=== PATIENT | female | born 1960 | race Caucasian/White ===

== ENCOUNTER 2017-11-04 10:27 | Observation (INO) ==
--- NOTE | 2017-11-04 12:28 | ERNOTE ---
Medical Problem HPI - Narrative Date of Service: 11/04/17 - General Chief Complaint: General Assessment Time Seen by Provider: 11/04/17 10:44 Source: patient, family Exam Limitations: no limitations - Immun/Allergies/Home Medications Immunizations: IMMUNIZATION HX Immunizations Up to Date No History of Influenza Vaccine No Hx Pneumococcal Vaccination No Allergies/Adverse Reactions: Allergies hydrocodone bitartrate [From Vicodin] Allergy (Intermediate, Verified 11/04/17 12:56) seizure Sulfa (Sulfonamide Antibiotics) Allergy (Intermediate, Verified 11/04/17 12:56) Rash, stomach upset Home Medications: HOME MEDICATIONS Amlodipine Besylate [Norvasc] 2.5 mg PO DAILY 12/02/13 [Last Taken 12/02/13 2.5 MG] Acetaminophen [Tylenol] 650 mg PO Q6H PRN 02/15/15 [Last Taken Unknown] Calcium Carbonate/Vitamin D3 [Calcium 600 + D Tablet] 1 each PO DAILY 02/15/15 [ Last Taken Unknown] Cyanocobalamin [Vitamin B-12] 1,000 mcg PO DAILY 02/15/15 [Last Taken Unknown] oxyCODONE HCL [Oxycodone HCl] 5 mg PO Q4H PRN #20 tablet 11/03/17 [Last Taken Unknown] - History of Present History Narrative: Pt presents with complaints of left upper extremity weakness and tremor as well as inability to care for herself at home. She presents with her son and daughter who state they are worried for her safety, pt fell at home since last being seen. She was seen on the (original injury), (similar symptoms as today-told to stop taking tramadol), and now again today. Last tramadol was taken yesterday at 9am. She broke her ankle 11/02 is schedule to follow up with ortho next week for eventual ORIF. Pt states she has had these symptoms before following taking vicodin. She was seen by neurology and an EEG indicated sz activity, she was on keppra for but due to lethargy was able to wean herself off of. Tramadol was given in the ER for pain control, however this has been shown to reduce sz threshold. Date (Duration): 11/03/17 Timing: constant Severity: severe Review of Systems - Review of Systems Constitutional: Present: no symptoms reported EYE: Present: no symptoms reported ENT: Present: no symptoms reported Respiratory: Present: no symptoms reported Cardiology: Present: no symptoms reported Gastrointestinal/Abdominal: Present: no symptoms reported Genitourinary: Present: no symptoms reported Musculoskeletal: Present: other - left ankle fx-in cast Skin: Present: no symptoms reported Neurological: Present: weakness, tremors Endocrine: Present: no symptoms reported Hematologic/Lymphatic: Present: no symptoms reported Psych: Present: no symptoms reported - Patient's Past Medical History Patient History - Medical: Other Patient History - Cardiac/Respiratory: No pertinent hx Patient History - Cancer: No Hx of Cancer Patient History - Surgical Procedures: T & A Patient History - Other: None LMP (females 10-50): Menopausal - Family History Mother Family History - Medical: Family History - Cardiac/Respiratory: Pulmonary Embolism Father Family History - Medical: , Liver Disease - Social History Living Situations: home Abuse History: No History of abuse, Physical abuse, Emotional abuse Psych History: No pertinent hx - Immunizations Immunizations Up to Date: No Hx Pneumococcal Vaccination: No History of Influenza Vaccine: No Physical Exam - Physical Exam General Appearance: Present: wd/wn, alert, no apparent distress Head Exam: Present: normal inspection, no evidence of injury Eye Exam: Normal inspection: bilateral Ears, Nose, Throat: Present: normal ENT inspection Neck: Present: normal inspection, nontender Respiratory: Present: no respiratory distress, normal breath sounds, no accessory muscle use, chest nontender, lungs clear Cardiovascular/Chest: Present: regular rate, rhythm, no murmur, normal peripheral pulses Gastrointestinal/Abdominal: Present: normal bowel sounds, nontender, nondistended, soft Back Exam: Present: normal inspection, normal range of motion Extremity Exam: Present: non-tender, no edema, decreased range of motion - LLE Neurological Exam: Present: alert, oriented, normal mood/affect, no motor/ sensory deficits, 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 Absent : facial droop, motor weakness, disoriented to person, disoriented to time Skin Exam: Present: normal color, warm/dry ED Progress - Date and Time Seen: Date and Time: Dr. Guidry spoke to regarding pt who is agreeable to accept her as observation. I spoke at length with pt and her family regarding the need for additional help following this hospital admission as well as after her surgery and even after her tremors are under control she will still need additional assistance and checking in on. 11/04/17 16:45 I spoke with Jules Ma regarding pt admission. Ortho consult placed and pt will be made NPO at midnight just in case surgery is an option at that time. - Vital Signs Patient's Vital Signs:: I have reviewed the patient's vital signs. Vital Signs: Vital Signs 11/04/17 10:33 Temperature 37.1 C Pulse Rate 110 H Respiratory 17 Rate Blood Pressure 176/100 O2 Sat by Pulse 96 Oximetry - Progress/Reassessment Chief Complaint: General Assessment Progress:: Unchanged Plan - Plan Plan: Pt and family agree that pt is not safe to go home given her profound tremor and weakness in addition to her original LLE injury which she is not to bear weight on. She has crutches and a walker at home but is unable to use either due to her tremor. She hasn't taken her tramadol since yesterday, the half life of this is quite short, however due to pt underlying sz disorder I am unsure when it will completely subside. Pt is requesting to be placed on low dose keppra to assist with control of her symptoms. I am agreeable to do so in a supervised hospital setting where additional sz activity can be monitored. Departure Clinical Impression: Tremor, Weakness - Departure Disposition: Still a patient Condition: Good
[2017-11-04] MEDS ORDERED: levETIRAcetam 500 MG TABLET PO SCH (12:30)
[2017-11-04] MEDS: NORMAL SALINE 1,000 ML IV PRN ×2 (12:36→20:35)
[2017-11-04] MEDS ORDERED: ACETAMINOPHEN 325 MG TABLET PO PRN (15:16)
[2017-11-04] MEDS: amLODIPine BESYLATE 5 MG TABLET PO SCH (16:18)
[2017-11-04] MEDS: levETIRAcetam 500 MG TABLET PO SCH (22:57)
[2017-11-04] MEDS: ACETAMINOPHEN WITH CODEINE 1 EACH TABLET PO PRN (22:57)
[2017-11-04] MEDS: DOCUSATE SODIUM 100 MG CAPSULE PO SCH (22:57)
--- NOTE | 2017-11-04 23:27 | HP ---
Chief Complaint - Chief Complaint Date of Service: 11/04/17 Time of Service: 15:00 Chief Complaint: Ankle pain, tremors History of Present Illness: Bianca is a 57 yo female with recent fall and left ankle fracture. This has been previously casted and she has an appointment with ortho on . Recent xrays show left distal fibula fracture, medial malleolus fracture, and possible posterior malleolus fracture. She is unable to take hydrocodone. She had been given oxycodone but this made her feel funny. She was given tramadol, but has a reported history of seizure. She was not recently on anti- seizure medications but states she took keppra in the past. After starting tramadol she reports her left arm started having tremors and she stopped the tramadol. She reports she was at home and unable to get around and care for herself and family was unable to assist her so she returned to the emergency room. - Patient's Past Medical History Patient History - Medical: Seizures Patient History - Cardiac/Respiratory: Hypertension Patient History - Cancer: No Hx of Cancer Patient History - Surgical Procedures: T & A Patient History - Other: None LMP (females 10-50): Menopausal - Family History Mother Family History - Medical: Family History - Cardiac/Respiratory: Pulmonary Embolism Father Family History - Medical: , Liver Disease - Social History Living Situations: home Abuse History: No History of abuse, Physical abuse, Emotional abuse Psych History: No pertinent hx Smoking Status: Former smoker Have you smoked in the past 12 months: No - Immunizations Immunizations Up to Date: No Hx Pneumococcal Vaccination: No History of Influenza Vaccine: No Review Of Systems (GEN) - Review of Systems Generalized/Overall Review: Present: Weakness. Absent: Chills, Fever EENTM: Present: No Symptoms Reported Respiratory: Present: No Symptoms Reported Cardiac: Present: No Symptoms Reported Abdominal: Present: No Symptoms Reported Genitourinary: Present: No Symptoms Reported Musculoskeletal: Present: Joint Pain Neurological: Present: Tremors Skin: Present: No Symptoms Reported Endocrine: Present: No Symptoms Reported Immunizations: IMMUNIZATION HX Immunizations Up to Date No History of Influenza Vaccine No Hx Pneumococcal Vaccination No Allergies/Adverse Reactions: Allergies Allergy/AdvReac Type Severity Reaction Status Date / Time hydrocodone bitartrate Allergy Intermediate seizure Verified 11/04/17 12:56 [From Vicodin] Sulfa (Sulfonamide Allergy Intermediate Rash, Verified 11/04/17 12:56 Antibiotics) stomach upset Home Medications: HOME MEDICATIONS Amlodipine Besylate [Norvasc] 2.5 mg PO DAILY 12/02/13 [Last Taken 12/02/13 2.5 MG] Acetaminophen [Tylenol] 650 mg PO Q6H PRN 02/15/15 [Last Taken Unknown] Calcium Carbonate/Vitamin D3 [Calcium 600 + D Tablet] 1 each PO DAILY 02/15/15 [ Last Taken Unknown] Cyanocobalamin [Vitamin B-12] 1,000 mcg PO DAILY 02/15/15 [Last Taken Unknown] oxyCODONE HCL [Oxycodone HCl] 5 mg PO Q4H PRN #20 tablet 11/03/17 [Last Taken Unknown] Exam - Exam Vital Signs: Vital Signs - Last Taken Temp 36.7 C 11/04/17 22:55 Pulse 88 11/04/17 22:55 Resp 20 11/04/17 22:55 BP 137/86 11/04/17 22:55 Pulse Ox 97 11/04/17 22:55 Constitutional: Present: Alert, Oriented x3, Cooperative ENT Exam: Present: hearing grossly normal Eye Exam: bilateral eye: normal inspection Respiratory: Present: lungs clear, normal breath sounds Cardiovascular/Chest: Present: regular rate, rhythm, no murmur Abdomen: Present: Normal bowel sounds, soft, nontender, nondistended Extremity: Present: other - Left leg with cast Skin Exam: Present: normal color, warm/dry, no cyanosis Lymphatic: Present: no adenopathy Neurologic: Present: no motor/sensory deficits, alert, normal mood/affect, oriented x 3, other - No tremor seen at this time Appearance: Present: appropriate appearance, appropriate insight Assessment/Plan - Narrative Narrative: Bianca is a 57 yo female with: 1) Left ankle fracture - She reports being unable to perform ADLs at home due to this and family is unable to assist her. She reports unable to take hydrocodone, oxycodone, or tramadol. Tylenol or NSAIDs have been uneffective. I will try tylenol #3 for pain control. If this helps she may be able to discharge to home, otherwise if she is unable to manage ADLs at home may look into fpc. Will consult ortho to recommend management for ankle fracture. 2) Seizure - Patient reports tremors after taking tramadol. She has previously been on keppra for a seizure disorder but has not been taking this. Will restart keppra and stop tramadol. Will monitor. 3) Social - Expect 1 midnight for pain management and looking into disposition. Will plan to discharge to home or intermediate tomorrow. - Assessment/Plan (1) Closed left ankle fracture Problem: Acute (2) Weakness Problem: Acute (3) Seizure disorder Problem: Acute
[2017-11-05 05:43] LABS: Hematocrit 42.9 % (37.0-47.0); Hemoglobin 14.2 gm/dL (12.5-16.0); Mean Cell Volume 94.1 fl (78-100); Mean Corpuscular Hemoglobin 31.1 pg (27-31); Mean Corpuscular Hgb Conc 33.1 g/dl (32-36); Mean Platelet Volume 9.4 fl (6.0-9.5); Neutrophil # 4.5 K/mm3 (1.3-6.0); Platelet Count 256 K/mm3 (150-450); Red Blood Count 4.56 M/mm3 (4.2-5.4); Red Cell Distribution Width 12.4 % (11.5-14.0); White Blood Count 9.4 K/mm3 (4.0-10.5)
[2017-11-05 06:03] LABS: Anion Gap 11.1 mmol/L (6.8-13.8); BUN/Creatinine Ratio 20.3 (9.0-21.6); Calcium * 8.9 mg/dL (7.9-10.9); Carbon Dioxide 28.4 mmol/L (24-32.6); Potassium 3.5 mmol/L (3.4-4.6)
[2017-11-05] MEDS: NORMAL SALINE 1,000 ML IV PRN (06:55)
[2017-11-05] MEDS: ACETAMINOPHEN WITH CODEINE 1 EACH TABLET PO PRN (06:57)
[2017-11-05] MEDS: CALCIUM CARBONATE/VITAMIN D3 1 TAB TABLET PO SCH (08:44)
[2017-11-05] MEDS: CYANOCOBALAMIN 1,000 MCG TABLET PO SCH (08:44)
[2017-11-05] MEDS: DOCUSATE SODIUM 100 MG CAPSULE PO SCH (08:44)
[2017-11-05] MEDS: amLODIPine BESYLATE 5 MG TABLET PO SCH (08:57)
[2017-11-05] MEDS: levETIRAcetam 500 MG TABLET PO SCH ×2 (08:57→20:26)
[2017-11-05] MEDS ORDERED: ceFAZolin SODIUM/DEXTROSE,ISO 2 GM/50 ML BAG IV PRN (10:28)
--- NOTE | 2017-11-05 10:35 | CONS ---
HPI - General Date of Service: 11/05/17 Narrative: Patient was seen in ER for displaced left bimalleolar ankle fracture SundayNovember 01 from a fall when she was mopping a floor. See ER consultation note. Closed reduction performed at that time and discharged home. She has had difficulty managing herself at home and tremor related to medications. She is currently admitted for observation. - History of Present Illness Allergies/Adverse Reactions: Allergies hydrocodone bitartrate [From Vicodin] Allergy (Intermediate, Verified 11/04/17 12:56) seizure Sulfa (Sulfonamide Antibiotics) Allergy (Intermediate, Verified 11/04/17 12:56) Rash, stomach upset Home Medications: Home Medications Medication Instructions Recorded Last Taken Amlodipine Besylate [Norvasc] 2.5 mg PO DAILY 12/02/13 12/02/13 2.5 MG Acetaminophen [Tylenol] 650 mg PO Q6H PRN 02/15/15 Unknown Calcium Carbonate/Vitamin D3 1 each PO DAILY 02/15/15 Unknown [Calcium 600 + D Tablet] Cyanocobalamin [Vitamin B-12] 1,000 mcg PO DAILY 02/15/15 Unknown - Patient's Past Medical History Patient History - Medical: Seizures Patient History - Cardiac/Respiratory: Hypertension Patient History - Cancer: No Hx of Cancer Patient History - Surgical Procedures: T & A Patient History - Other: None LMP (females 10-50): Menopausal - Family History Mother Family History - Medical: Family History - Cardiac/Respiratory: Pulmonary Embolism Father Family History - Medical: , Liver Disease - Social History Living Situations: home Abuse History: No History of abuse, Physical abuse, Emotional abuse Psych History: No pertinent hx Smoking Status: Former smoker Have you smoked in the past 12 months: No - Immunizations Immunizations Up to Date: No Hx Pneumococcal Vaccination: No History of Influenza Vaccine: No Procedures COLONOSCOPY (02/17/15) Medications - Medications Current Medications: Current Medications Acetaminophen (Tylenol) 650 mg PO Q6H PRN PRN Reason: Pain Stop: 12/04/17 15:17 Last Admin: 11/04/17 16:17 Dose: 650 mg Acetaminophen/Codeine Phosphate (Tylenol-Codeine 300 Mg/30 Mg) 1 each PO Q4H PRN PRN Reason: Mild pain (pain scale 1-3) Stop: 12/04/17 15:47 Last Admin: 11/05/17 06:57 Dose: 1 each Amlodipine Besylate (Norvasc) 2.5 mg PO DAILY FARIDA Stop: 12/04/17 15:31 Last Admin: 11/05/17 08:57 Dose: Not Given Calcium/Vitamin D (Calcarb 600 With Vitamin D) 1 tab PO DAILY FARIDA Stop: 12/05/17 09:01 Last Admin: 11/05/17 08:44 Dose: Not Given Cyanocobalamin (Vitamin B-12) 1,000 mcg PO DAILY FARIDA Stop: 12/05/17 09:01 Last Admin: 11/05/17 08:44 Dose: Not Given Docusate Sodium (Colace) 100 mg PO DAILY FARIDA Stop: 12/04/17 22:46 Last Admin: 11/05/17 08:44 Dose: Not Given Sodium Chloride (Sodium Chloride 0.9%) 1,000 mls @ 100 mls/hr IV .Q10H PRN PRN Reason: HYDRATION Stop: 12/04/17 12:14 Last Admin: 11/05/17 06:55 Dose: 100 mls/hr Levetiracetam (Keppra) 250 mg PO BID FARIDA Stop: 12/04/17 21:01 Last Admin: 11/05/17 08:57 Dose: Not Given Physical Examination - Exam Narrative: LLE in sugar tong and foot plate splint. Mild to moderate swelling. Sensation intact to light touch. Dorsalis pedis pulse intact. Xrays reviewed status post closed reduction shows bimalleolar ankle fracture in improved alignment. Vital Signs: Vital Signs - Last Taken Temp 36.9 C 11/05/17 07:39 Pulse 80 11/05/17 08:57 Resp 18 11/05/17 07:39 BP 138/55 11/05/17 08:57 Pulse Ox 95 11/05/17 07:39 O2 Oxygen Delivery Method Room Air - Results and Findings: Lab/Microbiology results last 24 hrs: Abnormal/Pending Laboratory Last 24 HRS 11/05/17 11/05/17 05:00 05:00 MCH 31.1 H Lymphocytes # 3.77 H Sodium 144 H Plasma Sodium 144 H Chloride 108 H - Assessments/Findings (1) Ankle fracture, bimalleolar, closed Diagnosis(s): Consents for open reduction internal fixation. Ancef IV preop. She NPO at this time. Risks discussed with patient. Problem: Acute Qualifiers: Encounter type: initial encounter Laterality: left Qualified Code(s): S82.842A - Displaced bimalleolar fracture of left lower leg, initial encounter for closed fracture
[2017-11-05] MEDS ORDERED: NORMAL SALINE 1,000 ML IV ONE (13:00)
[2017-11-05] MEDS ORDERED: ceFAZolin SODIUM 1 GM VIAL IV ONE ×2 (13:35→13:54)
[2017-11-05] MEDS ORDERED: RINGER'S SOLUTION,LACTATED 1,000 ML IV ONE (13:49)
--- NOTE | 2017-11-05 15:28 | POSTOP NO ---
Date of Surgery: 11/05/17 Patient Tolerated the Procedure: Well Post Operative Diagnosis/Procedures: Floral Assistant: Jules Ma PA-C Post-operative Diagnosis: Left trimalleolar ankle fracture with syndesmotic disruption Finding: Above Procedure: Open reduction internal fixation of left medial and lateral malleolus with stabilization and the syndesmosis, closed treatment of posterior malleolus fracture, intraoperative interpretation of x-rays Estimated Blood Loss: Minimal Specimens: None
--- NOTE | 2017-11-05 15:33 | OR ---
Operative Report - Dictated Report Narrative: Date: 11/05/2017 Surgeon: Lázaro Pearl M.D. Emt Basic: Jules Ma PA-C Anesthesia: General plus regional Preoperative diagnosis: Closed left trimalleolar ankle Fracture with syndesmotic disruption. Postoperative diagnosis: Closed left trimalleolar ankle Fracture with syndesmotic disruption. Procedure: 1. Open reduction internal fixation left medial and lateral malleolus fracture. 2. Stabilization of syndesmosis 3. Closed treatment of posterior malleolus fracture 2. Intra-operative interpretation of radiographs. Estimated blood loss: None Tourniquet time: 98 Minutes at 275 millimeters mercury Retained implants: [employer] 7-hole VLP one third tubular locking plate with associated screws on the fibula, 4.0 mm cannulated partially threaded cancellus screws in the medial malleolus x 2 at 46 mm in length, 3.5 mm nonlocking cortical screw and the syndesmosis Specimens: None Complications: None Indications: Mrs. Jon is a 57-year-old female who was mopping the floor when she slipped resulting in a injury to the left ankle. They were seen in the emergency room and was admitted at a later date and see on the floor with images obtained revealing the above injury. They were seen on the [facility] floor where the skin was examined and felt to be amenable to surgical treatment. The risks, benefits , and treatment options were discussed with the patient and the plan for reduction internal fixation was discussed. Risks were reviewed including , blood clots, nerve/tendon/blood vessel injury, malunion, nonunion, failure of implants, prominent implants, arthrosis, persistent pain, need for additional procedures. Procedure: After a timeout, antibiotics consisting of Ancef was administered. Beanbag was utilized in order bump the operative leg and a well-padded tourniquet was applied to the operative thigh. The splint was removed and the leg was pre- scrubbed with chlorhexidine then prepped and draped in a standard sterile fashion. The extremity was exsanguinated and tourniquet was inflated. Initial attention was turned to the medial malleolus. A curvilinear incision was made over the anterior medial aspect of the distal tibia. Care was taken to protect the saphenous vein and nerve. The medial malleolus fracture was identified and the soft tissues elevated off the bony edges. Hematoma was evacuated from the fracture site. The joint was visualized and there appeared to be no chondral damage. The joint was thoroughly irrigated. Preliminary fixation with a reduction clamp was placed across the fracture of the medial malleolus. Attention was then turned to the lateral malleolus. A posterior lateral incision was made over the fibular fracture. Subcutaneous dissection was carried down to the fibula protecting the superficial peroneal nerve. The fracture was identified and was noted to be a Hopkins C transverse. After preparing the bony edges and reducing the fracture, a 2.7 mm interfragmentary screw was utilized in order to stabilize the fracture. Mini C-arm was used in order to confirm the appropriate placement and length of the implants. Care was taken to avoid placing screws into the ankle joint and the syndesmosis. Once it was felt that the fibula was adequately stabilized we returned our attention to the medial malleolus. Two parallel guidewires were placed from the tip of the medial malleolus paralleling the anterior distal tibia within the confines of the distal tibial bone. These were measured, drilled, and sequentially tightened using 2 4.0 mm partially-threaded cancellus screws. This gave good stabilizations the medial malleolus fracture. The ankle was then placed through a range of motion and had no significant crepitance. The syndesmosis was stressed and was noted to be unstable. A 3.5 mm fully threaded cortical screw was then placed through the plate purchasing all 4 cortices with the fibula reduced and the syndesmosis. The mortise was symmetrical and intact. The wounds were then thoroughly irrigated. The posterior malleolus fracture was identified and felt to be less than 10% of the articular surface and thus did not necessitate fixation and appeared to have been reduced well with the reduction of the ankle. Subcutaneous tissue was repaired over the implants utilizing 3-0 Vicryl and 4-0 Vicryl. The skin was closed utilizing 3-0 and 4-0 nylon. Xeroform, 4 x 4's, soft roll, and a well-padded AO splint was applied. Patient was then awoken and transferred to postanesthesia care in stable condition. All sponge, sharp, and instrument counts were correct prior to closing the wounds.
[2017-11-05] MEDS ORDERED: ONDANSETRON HCL/PF 2 MG/ML VIAL IV PRN (15:34)
[2017-11-05] MEDS ORDERED: MAGNESIUM HYDROXIDE 30 ML UDC PO PRN (15:34)
[2017-11-05] MEDS ORDERED: PROMETHAZINE HCL 5 MG in DEXTROSE 5 % IN WATER 50 ML IV PRN ×2 (15:34)
[2017-11-05] MEDS ORDERED: diphenhydrAMINE HCL 50 MG/ML VIAL IV PRN (15:34)
[2017-11-05] MEDS ORDERED: ZOLPIDEM TARTRATE 5 MG TABLET PO PRN (15:34)
[2017-11-05] MEDS ORDERED: MAG HYDROX/ALUMINUM HYD/SIMETH 30 ML UDC PO PRN (15:34)
[2017-11-05] MEDS ORDERED: ACETAMINOPHEN 500 MG TABLET PO PRN (15:34)
--- NOTE | 2017-11-05 15:48 | OR ---
Anesthesia Procedure Note - Anesthesia Procedure Note Date of Service: 11/05/17 Narrative: Vital Signs - Last Taken Temp 36.9 C 11/05/17 15:30 Pulse 84 11/05/17 15:40 Resp 16 11/05/17 15:40 BP 145/86 11/05/17 15:40 Pulse Ox 100 11/05/17 15:40 O2 Oxygen Delivery Method Mask 11/05/17 15:43 ANESTHESIA PROCEDURE NOTE Date of Procedure: 11/05/2017. Time of procedure: 1300. Performed by: Edmond Diop CRNA Risk Control Director: None. Preprocedure diagnosis: Bimalleolar ankle fracture left. Post procedure diagnosis: Same. Procedure: Left ultrasound guided popliteal/sciatic nerve block for postoperative analgesia. Indications: The patient is a 57 -year-old female who is requesting a left ultrasound-guided popliteal/sciatic nerve block for postoperative analgesia related to ORIF left bimalleolar fracture . Findings: See below. Details of the procedure: The patient was placed in the left lateral decubitus position. The tissue over the intended target site was cleansed with ChloraPrep. 1 ml Lidocaine 1 % was infiltrated to the skin and subcutaneous tissue. Under sterile technique and ultrasound guidance a 21-gauge block needle was inserted superior to the cepholateral quadrant of the left leg. The needle was passed through the biceps femoris muscle to the tibial/sciatic nerve. 30 mL 's of 0.5% bupivacaine plus epinephrine 1:200,000 was injected after negative aspiration for blood. Needle tip and spread of local anesthetic surrounding the tibial/sciatic nerve was observed throughout the injection with real time ultrasound visualization. The needle was removed intact. No complications were noted. The images were retained in the Hospital medical database. EBL: Minimal. Fluids: N/A. Specimen: N/A. Post procedure condition: The patient tolerated the procedure well. No complications were noted. Thank you for this consultation. Edmond Diop CRNA
[2017-11-05] MEDS: DEXTROSE 5%-LACTATED RINGERS 1,000 ML IV PRN (16:14)
[2017-11-05] MEDS: ceFAZolin SODIUM 1 GM in DEXTROSE 5 % IN WATER 100 ML IV SCH ×4 (16:48→23:42)
[2017-11-05] MEDS ORDERED: SENNOSIDES/DOCUSATE SODIUM 1 TAB TABLET PO SCH (21:00)
[2017-11-06] MEDS: DEXTROSE 5%-LACTATED RINGERS 1,000 ML IV PRN (01:11)
[2017-11-06] MEDS: ACETAMINOPHEN WITH CODEINE 1 EACH TABLET PO PRN ×3 (02:54→14:13)
[2017-11-06] MEDS: ceFAZolin SODIUM 1 GM in DEXTROSE 5 % IN WATER 100 ML IV SCH ×2 (05:21)
--- NOTE | 2017-11-06 08:07 | PN ---
Subjective - Date and Time Seen Date: 11/06/17 Time: 08:05 Subjective Narrative: Doing well. Having mild medial ankle pain. Up in the chair. Slept okay. No significant concerns. Objective - Vitals Vitals: Last Vital Signs Temp 36.6 C 11/06/17 06:47 Pulse 86 11/06/17 06:47 Resp 18 11/06/17 06:47 BP 141/79 11/06/17 06:47 Pulse Ox 96 11/06/17 06:47 - Exam Exam Narrative: Left lower extremity: Brisk cap refill, sensation intact to light touch, moving toes, dressing dry, no excessive swelling or drainage Constitutional: Present: Alert, Oriented x3 Assessment/Plan - Problems/Diagnosis (1) Fracture of ankle, trimalleolar, closed Problem: Acute Qualifiers: Encounter type: subsequent encounter Laterality: left Fracture healing: with routine healing Qualified Code(s): S82.852D - Displaced trimalleolar fracture of left lower leg, subsequent encounter for closed fracture with routine healing Narrative: She will need to remain nonweightbearing. Ice and elevation but keeping the splint dry. I will see her back in approximately 1.5 to 2 weeks. She is okay to be discharged from an orthopedic standpoint as long as she meets her physical therapy goals. No anti-inflammatories for 2 weeks.
[2017-11-06] MEDS: CALCIUM CARBONATE/VITAMIN D3 1 TAB TABLET PO SCH (09:46)
[2017-11-06] MEDS: CYANOCOBALAMIN 1,000 MCG TABLET PO SCH (09:46)
[2017-11-06] MEDS: DOCUSATE SODIUM 100 MG CAPSULE PO SCH (09:46)
[2017-11-06] MEDS: amLODIPine BESYLATE 5 MG TABLET PO SCH (09:46)
[2017-11-06] MEDS: levETIRAcetam 500 MG TABLET PO SCH (09:46)
--- NOTE | 2017-11-06 13:19 | PN ---
Subjective - Date and Time Seen Date: 11/05/17 Time: 16:55 Subjective Narrative: Bianca is recovering after surgery, still tired. Reports pain is controlled. No fever, chills, n/v. Objective - Vitals Vitals: Last Vital Signs Selected Entries 11/05/17 11/05/17 15:58 16:05 Temperature 36.9 C Pulse Rate 84 Respiratory 16 Rate Blood Pressure 140/87 O2 Sat by Pulse 95 Oximetry Oxygen Delivery Room Air Method - Exam Constitutional: Present: Alert, Oriented x3, Cooperative ENT Exam: Present: hearing grossly normal Respiratory: Present: lungs clear, normal breath sounds Cardiovascular/Chest: Present: regular rate, rhythm, no murmur Abdomen: Present: Normal bowel sounds, soft, nontender, nondistended Skin Exam: Present: normal color, warm/dry, no cyanosis Assessment/Plan Plan Narrative: Doing well initially after surgery. No concerns. Will monitor post-operatively and control pain. Will plan to discharge to home tomorrow if pain is controlled. - Problems/Diagnosis (1) Closed left ankle fracture Problem: Acute (2) Weakness Problem: Acute (3) Seizure disorder Problem: Acute
--- NOTE | 2017-11-06 13:25 | DS ---
(1) Closed left ankle fracture Problem: Acute (2) Weakness Problem: Acute (3) Seizure disorder Problem: Acute Description of Stay: Bianca is a 57 yo female admitted for possible seizure and Closed left trimalleolar ankle Fracture with syndesmotic disruption. She had been given pain medications for the fracture and was to be evaluated on an outpatient setting, however when taking tramadol she reported tremoring of her left hand. She did not lose consciousness and was aware of the tremoring, but therefore presented to the [facility] ER. Tramadol was stopped and she was placed on tylenol #3 for pain control. She was admitted to observation for pain control as she was unable to perform ADLs at home due to the pain from her ankle fracture. Orthopedics were consulted. After evaluation they recommended surgery and she had Open reduction internal fixation left medial and lateral malleolus fracture , stabilization of syndesmosis, and closed treatment of posterior malleolus fracture. She was monitored post-operatively due to potential for seizures but she did well. She had no evidence of seizures during hospital course. After surgery she was doing well with controlled pain and discharged to home the following day after surgery. Procedures Performed: see notes below List Procedures: 11/05/17 Procedure: 1. Open reduction internal fixation left medial and lateral malleolus fracture. 2. Stabilization of syndesmosis 3. Closed treatment of posterior malleolus fracture 2. Intra-operative interpretation of radiographs. Discharge Location: Home Discharge Location: Home Disposition: Home Health Service Condition: Good Discharge Activity: Activity as tolerated Discharge Diet: General/regular food Referrals: Alma Boyer CNP [Primary Care Provider] - Lázaro Pearl MD [Staff Physician] - (1.5 - 2 weeks) Problem Oriented Discharge Instructions to Patient/Family: Ankle Fracture With Rehab-[facility] Additional Patient Instructions (free text): [facility]. Please fax orders and face to face and call report upon discharge. Remain nonweightbearing to left lower extremity. Ice and elevation but keep splint dry. Follow up with ortho in 1.5-[address]Woodbury Douglass. 11/15 at 3:00 No anti-inflammatories for 2 weeks. Prescriptions (Any new or edited meds): Acetaminophen [Tylenol] 1,000 mg PO Q6H PRN #120 tablet PRN Reason: Mild Pain (Pain Scale 1-3) Acetaminophen with Codeine [Tylenol-Codeine 300 MG/30 MG] 1 each PO Q4H PRN #30 tablet PRN Reason: Mild Pain (Pain Scale 1-3) levETIRAcetam [Keppra] 250 mg PO BID #60 tab Complete Home Medications List: Complete Home Medication List: Amlodipine Besylate [Norvasc] 2.5 mg PO DAILY 12/02/13 Acetaminophen [Tylenol] 650 mg PO Q6H PRN 02/15/15 Calcium Carbonate/Vitamin D3 [Calcium 600 + D Tablet] 1 each PO DAILY 02/15/15 Cyanocobalamin [Vitamin B-12] 1,000 mcg PO DAILY 02/15/15 oxyCODONE HCL [Oxycodone HCl] 5 mg PO Q4H PRN #20 tablet 11/03/17 Acetaminophen [Tylenol] 1,000 mg PO Q6H PRN #120 tablet 11/06/17 Acetaminophen with Codeine [Tylenol-Codeine 300 MG/30 MG] 1 each PO Q4H PRN #30 tablet 11/06/17 levETIRAcetam [Keppra] 250 mg PO BID #60 tab 11/06/17
[2017-11-06 15:13] VITALS: BP 143/83
== END 2017-11-06 15:15 | disposition home health service (06) ==
LOC: ER 10:27 → MS 12:21
PROVIDERS: ADMIT Family Medicine; ATTEND Family Medicine
DX: W01.0XXA Fall on same level from slipping, tripping and stumbling without subsequent striking against object, initial encounter; Z87.891 Personal history of nicotine dependence; G40.909 Epilepsy, unspecified, not intractable, without status epilepticus; I10 Essential (primary) hypertension; R53.1 Weakness; S82.852A Displaced trimalleolar fracture of left lower leg, initial encounter for closed fracture
CPT/HCPCS: 36415; 80048; 85025; 96365; 96366; 97161; 97165; 99284; G0378; G8978; G8979; G8980